=== PATIENT | male | born 1955 | race Caucasian/White ===

== ENCOUNTER 2016-12-15 14:56 | Emergency (ER) | payer OTHER ==
[2016-12-15 15:04] VITALS: BP 175/98
[2016-12-15] MEDS ORDERED: BUFFERED LIDOCAINE 10 ML SYRINGE ONE (16:08)
[2016-12-15] MEDS ORDERED: HYDROcod/ACETAM 5/325 MG TABLET PO STA (16:11)
[2016-12-15] MEDS ORDERED: CLINDAMYCIN 150 MG CAPSULE PO STA (16:11)
[2016-12-15] MEDS ORDERED: HYDROcod/ACETAM 5/325 MG TABLET ONE (16:13)
--- NOTE | 2016-12-15 16:13 | ED Physician Documentation ---
PD HPI HEENT - Stated complaint Stated Complaint: dental pain - Chief complaint Chief Complaint: Heent - History of Present Illness Timing - onset: Other (Despite seeing his dentist a few weeks ago with negative x-rays and "clean bill of health." He developed a toothache over the last few days which became severe overnight with mild left-sided facial swelling. Seems emanate from the last molar on the left maxilla.) Review of Systems Constitutional: denies: Fever, Chills Nose: denies: Rhinorrhea / runny nose, Congestion Throat: reports: Dental pain / toothache. denies: Sore throat PD PAST MEDICAL HISTORY - Past Medical History Past Medical History: Yes Cardiovascular: Hypertension - Past Surgical History Past Surgical History: No - Present Medications Home Medications: Ambulatory Orders Medication Instructions Recorded Confirmed Clindamycin [Cleocin] 300 mg PO Q6H 10 Days 12/15/16 HYDROcod/ACETAM 5/325 [[place] 5/325] 1 - 2 ea PO Q6H PRN #15 tablet 12/15/16 Metoprolol Succinate/Hctz 1 tab PO DAILY 12/15/16 12/15/16 [Metoprolol ER-Hctz 25-12.5 mg] - Allergies Allergies/Adverse Reactions: Allergies Allergy/AdvReac Type Severity Reaction Status Date / Time lisinopril AdvReac Unknown Verified 12/15/16 15:06 - Social History Does the pt smoke?: No Smoking Status: Never smoker Does the pt drink ETOH?: No Does the pt have substance abuse?: No PD ED PE NORMAL - Vitals Vital signs reviewed: Yes - General General: Alert and oriented X 3, No acute distress - HEENT HEENT: PERRL, EOMI, Other (Very mild left-sided facial swelling, he has a palpable early abscess lateral to the last molar on the left maxilla without trismus or sublingual edema.) - Neck Neck: Supple, no meningeal sign, No bony TTP - Neuro Neuro: Alert and oriented X 3, Normal speech - Psych Psych: Normal mood, Normal affect Results - Vitals Vitals: Vital Signs - 24 hr 12/15/16 15:02 Temperature 36.4 C L Heart Rate 82 Respiratory 16 Rate Blood Pressure 175/98 H O2 Saturation 98 Procedures - Abscess I&D (location) Dental abscess, L mandible Preparation: Lidocaine 1% Incision: Incised with scalpel, Purulent drainage, Loculations broken Other: Pt tolerated well, Dressing applied, Antibiotic prescribed Departure - Departure Disposition: 01 Home, Self Care Clinical Impression: Dental abscess Condition: Good Record reviewed to determine appropriate education?: Yes Instructions: ED Abscess Dental Prescriptions: Clindamycin [Cleocin] 300 mg PO Q6H 10 Days HYDROcod/ACETAM 5/325 [[place] 5/325] 1 - 2 ea PO Q6H PRN #15 tablet PRN Reason: Pain Comments: Follow-up with your dentist as soon as possible. Return if worse. Your blood pressure was elevated today on check into the emergency department. This does not mean that you have hypertension, it is a common phenomenon to come to the emergency department and have elevated blood pressure. I recommend that she see her primary care physician within the week to have it rechecked when you are feeling better. Do not drink or drive while taking narcotic pain medication. Note that many narcotic pain relievers also contain Tylenol/acetaminophen. Please ensure that your total dose of acetaminophen from all sources does not exceed 3 g (3000 mg) per day. You may get constipated while on this medication. Take a stool softener such as Colace twice a day while you are on it. Also add an [id number] laxative such as senna or MiraLAX on any day that you do not have a bowel movement. If you received a narcotic pain medication or sedative while in the emergency department, do not drive for the next 24 hours.
[2016-12-15] MEDS ORDERED: CLINDAMYCIN 150 MG CAPSULE PO ONE (16:14)
[2016-12-15] MEDS ORDERED: HYDROcod/ACET 5/325 Prepack 6 PO STA (16:23)
[2016-12-15] MEDS ORDERED: HYDROcod/ACET 5/325 Prepack 6 PO ONE (16:29)
== END 2016-12-15 16:36 | disposition home or self-care (01) ==
LOC: ED 14:56
DX: K04.7 Periapical abscess without sinus (principal); I10 Essential (primary) hypertension
CPT/HCPCS: 41800; 99283; A9270

== ENCOUNTER 2017-04-24 12:39 | Outpatient (CLI) | payer OTHER ==
[2017-04-24 18:04] LABS: BILIRUBIN,URINE NEGATIVE (NEGATIVE)
[2017-04-24 18:06] LABS: UA CHARGE (STRIP ONLY) YES; UR CULTURE IF IND NOT INDICATED
[2017-04-24 18:25] LABS: CALCIUM 9.2 mg/dL (8.5-10.3); POTASSIUM 3.7 mmol/L (3.5-5.0)
== END 2017-04-24 12:40 | disposition home or self-care (01) ==
LOC: LAB.F 12:39
PROVIDERS: ATTEND Internal Medicine
DX: R31.0 Gross hematuria (principal)
CPT/HCPCS: 36415; 80048; 81001; 81003; 87086

== ENCOUNTER 2017-07-04 07:38 | Outpatient (CLI) | payer OTHER ==
[2017-07-04 12:19] LABS: CHOL/HDL RATIO 5.9 (<5.0); CHOLESTEROL 259 mg/dL; HDL CHOLESTEROL 44 mg/dL; LDL CHOLESTEROL,CALCULATED 159 mg/dL; LDL/HDL RATIO 3.6 (<3.6); VLDL CHOLESTEROL 56 mg/dL
[2017-07-05 12:57] LABS: HEPATITIS C ANTIBODY NON-REACTIVE (NON-REACTIVE)
== END 2017-07-04 07:39 | disposition home or self-care (01) ==
LOC: LAB.F 07:38
PROVIDERS: ATTEND Internal Medicine
DX: Z11.59 Encounter for screening for other viral diseases (principal); Z13.6 Encounter for screening for cardiovascular disorders
CPT/HCPCS: 36415; 80061; 83721; 86803

== ENCOUNTER 2018-10-29 09:35 | Outpatient (CLI) | payer OTHER ==
[2018-10-29 17:38] LABS: CHOL/HDL RATIO 5.2 (<5.0); CHOLESTEROL 241 mg/dL; GLUCOSE,FASTING 105 mg/dL (70-100); HDL CHOLESTEROL 46 mg/dL; LDL CHOLESTEROL,CALCULATED 138 mg/dL; VLDL CHOLESTEROL 57 mg/dL
== END 2018-10-29 09:36 | disposition home or self-care (01) ==
LOC: LAB.F 09:35
PROVIDERS: ATTEND Internal Medicine
DX: E78.5 Hyperlipidemia, unspecified (principal); R73.01 Impaired fasting glucose
CPT/HCPCS: 36415; 80061; 82947; 83721

== ENCOUNTER 2018-11-17 09:10 | Outpatient (CLI) | payer OTHER ==
[2018-11-17 17:40] LABS: BASOPHILS % (AUTO) 0.5 %; EOSINOPHILS # (AUTO) 0.2 10^3/uL (0.0-0.7); HGB - HEMOGLOBIN 14.7 g/dL (14.0-18.0); LYMPHOCYTES # (AUTO) 2.2 10^3/uL (1.5-3.5); LYMPHOCYTES % (AUTO) 37.3 %; MEAN CORPUSCULAR HGB CONC 34.3 g/dL (32.0-36.0); MEAN CORPUSCULAR VOLUME 99.1 fL (80.0-94.0); MEAN PLATELET VOLUME 7.8 fL (7.4-11.4); MONOCYTES # (AUTO) 0.4 10^3/uL (0.0-1.0); MONOCYTES % (AUTO) 7.1 %; NEUTROPHILS # (AUTO) 3.1 10^3/uL (1.5-6.6); NEUTROPHILS % (AUTO) 52.1 %; PLT - PLATELET COUNT 260 10^3/uL (130-450); RED BLOOD COUNT 4.33 10^6/uL (4.70-6.10); RED CELL DISTRIBUTION WIDTH 12.8 % (12.0-15.0); WHITE BLOOD COUNT 5.9 x10^3/uL (4.8-10.8)
[2018-11-17 18:00] LABS: ALBUMIN 4.1 g/dL (3.2-5.5); BILIRUBIN,DIRECT 0.1 mg/dL (0.1-0.5); BILIRUBIN,TOTAL 0.9 mg/dL (0.2-1.0); CRP HIGH SENSITIVITY 2.7 mg/L; TOTAL PROTEIN 7.2 g/dL (6.7-8.2)
[2018-11-19 14:06] LABS: ANA SCREEN NEGATIVE (NEGATIVE)
== END 2018-11-17 09:11 | disposition home or self-care (01) ==
LOC: LAB.F 09:10
PROVIDERS: ATTEND Internal Medicine
DX: M79.18 Myalgia, other site (principal)
CPT/HCPCS: 36415; 80076; 82306; 82550; 84439; 84443; 85025; 85651; 86038; 86141

== ENCOUNTER 2018-12-08 15:13 | Outpatient (CLI) | payer OTHER | END 2018-12-08 15:14 | disposition home or self-care (01) | LOC: SC 15:13 | PROVIDERS: ATTEND Nurse Practitioner Family | DX: G47.33 Obstructive sleep apnea (adult) (pediatric) (principal); E66.9 Obesity, unspecified; Z68.37 Body mass index [BMI] 37.0-37.9, adult | CPT/HCPCS: 99204; 99212 ==

== ENCOUNTER 2019-02-23 15:18 | Outpatient (CLI) | payer OTHER ==
[2019-02-23 16:11] VITALS: BP 120/70
--- NOTE | 2019-02-23 16:11 | SLEEP CARE CONSULTATION ---
Information from patient questionnaire entered by Nancy Plata. I have reviewed and concur with the information entered by Nancy Plata. This document represents the service I personally performed and the decisions made by me, Diana Valdovinos, RN, MSN, [employer]. History of Present Illness Previous diagnosis: Mild, Obstructive Sleep Apnea-Hypopnea Syndrome AHI: 11.9 Reason for CPAP/BiPAP follow up: first compliance after device update Equipment type: CPAP Equipment obtained from: [employer] Mask style: Nasal pillows Mask brand: Resmed Backup mask available: Yes Last cushion change: a week ago HPI additional information: The Susu Ease nasal cream resolved the nasal irritation. CPAP Compliance Data - Data Reviewed with Patient Average duration of nightly device use: 6.95 Compliance rate %: 100 Current pressure setting (cmH2O): 8-10 Humidity settin Heated hose settin Average residual AHI: 0.7 Subjective Patient concerns: reports: nasal congestion (mild recently), dry mouth, nose, throat (a couple times a week ), other (headache a few times in the past week). denies: aerophagia, mask discomfort, air blowing in eyes, mask leak noise, condensation in mask/hose, epistaxis Observed to snore while using device: No Current pressure setting perceived as: comfortable On therapy, patient: reports: sleeping better, awakening more refreshed, being more awake and alert during the day, more rested overall Initial [place] Sleepiness Scale score: 8 Current [place] Sleepiness Scale score: 2 Allergies and Home Medications Known drug allergies: Yes Home medication list reviewed: Yes Allergy and home medication list: Medication Name (generic/name brand) Strength & Dosage Metoprolol-Hydrochlorothiazide 50-25mg tab one daily Aspirin 81mg tab one daily Vitamin D3 1000IU tab one daily Jade 180mg tab one daily Fluticasone 50 mcg/inh Nasal [place] Two sprays each nostril daily Allergy List Lisinopril Venlafaxine Simvastatin Review of Systems Review of systems same as previous: Yes Physical Exam Blood Pressure: 120/70 Cuff size: long Heart Rate: 77 O2 Saturation: 97 Height: 5 ft 9.25 in Weight (kg): 238 lb 6.4 oz Body Mass Index: 34.9 BMI Classification: Class 1 Impression and Plan 1. Obstructive Sleep Apnea-Hypopnea Syndrome, mild, with good treatment compliance and good apnea control. On CPAP therapy, the patient has better sleep quality and is more rested overall. For oral dryness, he is advised to lower the heated hose a setting a night. The headache sounds as if from allergies and he is also having the nasal congestion. He has also just restarted his Flonase recently which he states can contribute to headache. I have also noted it to be from dryness of air. Thus I also advised him to restart use of saline nasal spray prior to CPAP and Flonase for additional moisture and for better medication adherance. . Patient's apnea severity and rationale for treatment to reduce apnea, improve sleep quality and reduce cardiovascular and cerebrovascular events was reviewed. I also reviewed the benefit of consistent device use of CPAP for hypertension. Patient is obese with BMI of 34.9. He was advised of health risks associated with obesity including apnea risk / severity. He is starting to lose weight and praised for effort. I explained how significant weight loss can reduce CPAP pressure requirements and symptoms to report to adjust pressure. * Continue CPAP pressure at [id number] * Adjust heated hose * Use saline nasal spray. * Notify me if snoring with mask or feeling that the pressure is too much or too little * Continue to lose weight * Return for follow up in 1 year , or sooner if concerns arise * I spent 100% of this 25 minute visit face to face with the patient with greater than 50% of this was spent time counseling the patient and coordination of care.
== END 2019-02-23 15:19 | disposition home or self-care (01) ==
LOC: SC 15:18
PROVIDERS: ATTEND Nurse Practitioner Family
DX: G47.33 Obstructive sleep apnea (adult) (pediatric) (principal); E66.9 Obesity, unspecified; Z68.34 Body mass index [BMI] 34.0-34.9, adult
CPT/HCPCS: 99212; 99214

== ENCOUNTER 2021-06-23 14:57 | Outpatient (CLI) | payer OTHER | END 2021-06-23 14:58 | disposition EMS.NT | LOC: EMS 14:57 | DX: I10 Essential (primary) hypertension (principal); R51.9 Headache, unspecified; J32.9 Chronic sinusitis, unspecified ==

== ENCOUNTER 2021-06-23 15:47 | Emergency (ER) | payer OTHER ==
[2021-06-23] MEDS ORDERED: SUMAtriptan 6 MG/0.5 ML VIAL SUBQ STA (16:28)
[2021-06-23] MEDS ORDERED: KETOROLAC 60 MG/2 ML VIAL IM STA (16:28)
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
[2021-06-23 17:30] VITALS: BP 166/100
== END 2021-06-23 17:15 | disposition home or self-care (01) ==
LOC: ED 15:47
DX: B34.9 Viral infection, unspecified (principal); I10 Essential (primary) hypertension
CPT/HCPCS: 96372; 99282; 99283

== ENCOUNTER 2022-07-25 14:57 | Outpatient (CLI) | payer MEDICARE ==
[2022-07-25 15:50] VITALS: BP 132/88
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
== END 2022-07-25 14:58 | disposition home or self-care (01) ==
LOC: SC 14:57
PROVIDERS: ATTEND Nurse Practitioner Family
DX: G47.33 Obstructive sleep apnea (adult) (pediatric) (principal); E66.9 Obesity, unspecified; Z68.34 Body mass index [BMI] 34.0-34.9, adult
CPT/HCPCS: 99203; G0463; 99212

== ENCOUNTER 2023-05-24 06:19 | Emergency (ER) | payer MEDICARE ==
[2023-05-24] MEDS ORDERED: METOCLOPRAMIDE 10 MG/2 ML VIAL IVP STA (06:47)
[2023-05-24] MEDS ORDERED: SODIUM CHLORIDE 0.9% 1,000 ML IV STA ×2 (06:47→08:46)
[2023-05-24] MEDS ORDERED: KETOROLAC 15 MG/ML VIAL IVP STA (06:47)
[2023-05-24] MEDS ORDERED: diphenhydrAMINE INJ 50 MG/ML VIAL IVP STA (06:47)
[2023-05-24 07:16] LABS: BASOPHILS # (AUTO) 0.1 10^3/uL (0.0-0.1); BASOPHILS % (AUTO) 0.5 %; EOSINOPHILS # (AUTO) 0.1 10^3/uL (0.0-0.7); EOSINOPHILS % (AUTO) 1.3 %; HCT - HEMATOCRIT 42.1 % (42.0-52.0); HGB - HEMOGLOBIN 14.6 g/dL (14.0-18.0); LYMPHOCYTES # (AUTO) 2.3 10^3/uL (1.5-3.5); LYMPHOCYTES % (AUTO) 25.2 %; MEAN CORPUSCULAR HEMOGLOBIN 33.7 pg (27.0-31.0); MEAN CORPUSCULAR HGB CONC 34.7 g/dL (32.0-36.0); MEAN CORPUSCULAR VOLUME 97.2 fL (80.0-94.0); MONOCYTES # (AUTO) 0.7 10^3/uL (0.0-1.0); MONOCYTES % (AUTO) 7.7 %; PLT - PLATELET COUNT 242 10^3/uL (130-450); RED BLOOD COUNT 4.33 10^6/uL (4.70-6.10); RED CELL DISTRIBUTION WIDTH 12.3 % (12.0-15.0); WHITE BLOOD COUNT 9.2 x10^3/uL (4.8-10.8)
--- NOTE | 2023-05-24 07:33 | XRAY Report ---
PROCEDURE: Chest 1 View X-Ray INDICATIONS: palpiations TECHNIQUE: One view of the chest was acquired. COMPARISON: None. FINDINGS: Surgical changes and devices: None. Lungs and pleura: No pleural effusions or pneumothorax. Lungs are clear. Mediastinum: Mediastinal contours appear normal. Heart size is normal. Bones and chest wall: No suspicious bony lesions. Overlying soft tissues appear unremarkable. IMPRESSION: No acute cardiopulmonary process. Reviewed by: Alex Mosquera MD on 05/24/2023 7:32 AM [facility] Approved by: Alex Mosquera MD on 05/24/2023 7:32 AM [facility] Station ID: [id number]
[2023-05-24 07:40] LABS: PT - PROTHROMBIN TIME 11.4 secs (9.9-12.6)
[2023-05-24 07:53] LABS: ALBUMIN 4.9 g/dL (3.2-5.5); ALBUMIN/GLOBULIN RATIO 1.8 (1.0-2.2); BILIRUBIN,TOTAL 1.1 mg/dL (0.2-1.0); CALCIUM 9.9 mg/dL (8.5-10.3); CREATININE 1.1 mg/dL (0.6-1.3); POTASSIUM 3.5 mmol/L (3.5-4.5); TOTAL PROTEIN 7.7 g/dL (6.4-8.9)
--- NOTE | 2023-05-24 08:03 | ED Physician Documentation ---
PD HPI HEADACHE - Stated complaint Stated Complaint: CHOI/HIGH BP/CHEST PX - Chief complaint Chief Complaint: General - History obtained from History obtained from: Patient, Family () - History of Present Illness Timing - onset: How many days ago (5) Timing - onset during: Rest Timing - duration: Days (5) Timing - details: Gradual onset, Still present Location: Front Quality: Throbbing, Aching Associated symptoms: Nausea. No: Fever, Stiff neck, Vomiting, Weakness, Numbness, Syncope, Seizure, Eye pain, Vision changes Improved by: Rest Worsened by: Noise, Moving Contributing factors: Hypertension. No: Anticoagulated, Possible carbon monoxide Similar symptoms before: Diagnosis (migraine and hypertension) Recently seen: Not recently seen - Additional information Additional information: Abebe Garsia is a 68-year-old male who is treated for hypertension hyperlipidemia and obstructive sleep apnea who presents today to the emergency department with a headache that he has had for the past week. He has had some similar happen to him previously with elevated blood pressure and he was treated with a migraine cocktail and resolved his headache. He reports that he has some pressure in his chest or pain in the chest and he has come to the emergency department this morning for treatment and evaluation. His indicates that she believes the pain in his chest is secondary to some activity they had on their anniversary several days ago. The patient denies shortness of breath fever or cough currently. He has been immunized against COVID and had COVID in December of this year. Denies any lateralizing findings. Review of Systems Constitutional: denies: Fever Eyes: denies: Decreased vision, Photophobia Ears: denies: Loss of hearing, Ear pain Nose: reports: Congestion. denies: Rhinorrhea / runny nose Throat: denies: Sore throat Cardiac: reports: Chest pain / pressure. denies: Palpitations, Pedal edema, Calf pain Respiratory: denies: Dyspnea, Cough, Wheezing GI: reports: Nausea. denies: Abdominal Pain, Vomiting, Constipation, Diarrhea : denies: Dysuria, Frequency PD PAST MEDICAL HISTORY - Past Medical History Past Medical History: Yes Cardiovascular: Hypertension - Past Surgical History Past Surgical History: No - Present Medications Home Medications: Ambulatory Orders Medication Instructions Recorded Confirmed Metoprolol Mcelroy/Hydrochlorothiaz 2 tab PO DAILY 12/15/16 05/24/23 [Metoprolol ER-Hctz 25-12.5 mg] Aspirin [Aspirin EC] 81 mg PO DAILY PM 06/23/21 05/24/23 Losartan Potassium 1 tab PO DAILY 05/24/23 05/24/23 Rosuvastatin Calcium [Crestor] 1 tab PO DAILY PM 05/24/23 05/24/23 - Allergies Allergies/Adverse Reactions: Allergies Allergy/AdvReac Type Severity Reaction Status Date / Time lisinopril AdvReac Unknown Verified 05/24/23 06:46 - Social History Does the pt smoke?: No Smoking Status: Never smoker Does the pt drink ETOH?: No Does the pt have substance abuse?: No - POLST Patient has POLST: No PD ED PE NORMAL - Vitals Vital signs reviewed: Yes (Tachycardic and hypertensive) - General General: Alert and oriented X 3, No acute distress, Well developed/nourished - HEENT HEENT: Atraumatic, PERRL, EOMI, Ears normal, Pharynx benign, Other (Dry mucous membranes) - Neck Neck: Supple, no meningeal sign, No bony TTP - Cardiac Cardiac: No murmur, Other (tachy ) - Respiratory Respiratory: No respiratory distress, Clear bilaterally - Abdomen Abdomen: Soft, Non tender, Non distended - Back Back: No CVA TTP, No spinal TTP - Derm Derm: Normal color, Warm and dry, No rash - Extremities Extremities: No deformity, No edema - Neuro Neuro: Alert and oriented X 3, 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, No motor deficit, No sensory deficit, Normal speech Eye Opening: Spontaneous Motor: Obeys Commands Verbal: Oriented GCS Score: 15 - Psych Psych: Normal mood, Normal affect Results - Vitals Vitals: Vital Signs - 24 hr 05/24/23 05/24/23 05/24/23 06:41 07:54 09:53 Temperature 37 C Heart Rate 105 H 88 86 Respiratory 18 18 20 Rate Blood Pressure 187/104 H 178/99 H 169/95 H O2 Saturation 98 96 99 05/24/23 11:21 Temperature Heart Rate 81 Respiratory 18 Rate Blood Pressure 160/91 H O2 Saturation 98 Oxygen O2 Source Room air - EKG (time done) 0746 EKG releavant findings:: EKG personally interpreted by author of this note. Relevant findings are: Rate: Rate (enter#) (83) Rhythm: LAE Ischemia: Normal ST segments Compare to prior EKG: Unchanged from prior EKG (SPT 11-29-2013 no changes) Computer interpretation: Agree with computer - Labs Labs: Laboratory Tests 05/24/23 05/24/23 05/24/23 07:00 07:00 07:00 WBC 9.2 RBC 4.33 L Hgb 14.6 Hct 42.1 MCV 97.2 H MCH 33.7 H MCHC 34.7 RDW 12.3 Plt Count 242 MPV 9.0 Neut # (Auto) 6.0 Lymph # (Auto) 2.3 [place] # (Auto) 0.7 Eos # (Auto) 0.1 Baso # (Auto) 0.1 Absolute Nucleated RBC 0.00 Nucleated RBC % 0.0 PT INR Sodium 136 Potassium 3.5 Chloride 100 L Carbon Dioxide 25 Anion Gap 11.0 BUN 13 Creatinine 1.1 Estimated GFR (MDRD) 67 L Glucose 130 H Calcium 9.9 Total Bilirubin 1.1 H AST 27 ALT 33 Alkaline Phosphatase 45 Troponin I High Sens 8.2 Total Protein 7.7 Albumin 4.9 Globulin 2.8 Albumin/Globulin Ratio 1.8 05/24/23 07:15 WBC RBC Hgb Hct MCV MCH MCHC RDW Plt Count MPV Neut # (Auto) Lymph # (Auto) [place] # (Auto) Eos # (Auto) Baso # (Auto) Absolute Nucleated RBC Nucleated RBC % PT 11.4 INR 1.0 Sodium Potassium Chloride Carbon Dioxide Anion Gap BUN Creatinine Estimated GFR (MDRD) Glucose Calcium Total Bilirubin AST ALT Alkaline Phosphatase Troponin I High Sens Total Protein Albumin Globulin Albumin/Globulin Ratio - Rads (name of study) chest Relevant Findings:: Prelim report reviewed (Impression: No acute cardiopulmonary process), EMP independent interpretation of test, See rad report CTA head Relevant Findings:: Prelim report reviewed (Impression: 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 No extravasation identified.), EMP independent interpretation of test, See rad report CT head Relevant Findings:: Prelim report reviewed (Impression: 1. No acute intracranial pathology. Question 0.5 cm basilar tip aneurysm. Recommend cerebral CT angiogram for further evaluation.) Procedures - IVC sono (time) 0818 Bedside IVC sono: IVC measures (cm) (0.88), Dehydration (est 2 liter deficit) PD Medical Decision Making - ED course Complexity details: considered differential, d/w patient, d/w family Reviewed Lab Results: We reviewed a complete blood count showing a normal white blood cell count normal hemoglobin hematocrit and platelets coagulation normal INR chemistry normal electrolytes normal kidney and liver function high-sensitivity troponin negative at 8.2. These laboratory values are benign in appearance and do not contribute to a specific diagnosis. They do help with the differential ruling out acute coronary syndrome, renal failure, electrolyte abnormality, overwhelming infection or anemia as a reason for headache. ED course: 68-year-old male with a history of headache for 1 week presents today with elevated blood pressure and chest pain with tachycardia. His headache started after intercourse 6 days ago. He denies orgasm associated or pre-orgasm associated headache but headache after sex. He has had a similar headache previously not associated with sex and gets headaches sometimes once or twice a week. He has sleep apnea and he has been having some trouble regulating the moisture in the air tubing. Today I evaluated the patient with POCUS and interrogated the inferior vena cava and found a volume deficit of about 2 L. I felt this likely represented the reason this patient had a headache that appeared positional or is worse with head movement and persisted for days. Here in the emergency department the patient has responded well to a migraine cocktail that includes saline. He is given additional fluids and his workup is essentially benign. I have shared these results with the patient and his . Following what appeared to be a good explanation for this patient's symptoms the report came back from the patient's CT of the head and there was concern about a aneurysm in the basilar system and a CTA of the head was done demonstrating an 8 mm aneurysm without extravasation. Neurosurgery at [facility] is consulted in the case for direction. I did specifically ask the patient about weather his headache started prior to orgasm with orgasm or after sex and his was after. Dr. Mantilla the neurosurgeon at [facility] recommends direct transfer of the patient and request patient be n.p.o. I spoke with Dr. Herr emergency department physician at [facility] for hand off and we will airlift the patient and he will be n.p.o. The helicopter is weather grounded and the patient will go ground npo with IV NS [id number]. Departure - Departure Disposition: 02 Transfer Acute Care Hosp Clinical Impression: Dehydration determined by examination, Cerebral aneurysm Headache Qualifiers: Headache type: associated with sexual activity Qualified Code(s): G44.82 - Headache associated with sexual activity Condition: Stable Follow-Up: MIMI MALDONADO MD [Primary Care Provider] -
--- NOTE | 2023-05-24 08:20 | CT Report ---
PROCEDURE: HEAD WO INDICATIONS: FRONTAL CHOI X1 WK, NEW PATTERN TECHNIQUE: Noncontrast 4.5 mm thick angled axial sections acquired from the foramen magnum to the vertex. For r adiation dose reduction, the following was used: automated exposure control, adjustment of mA and/or kV according to patient size. COMPARISON: None. FINDINGS: Image quality: Excellent. CSF spaces: Basal cisterns are patent. No extra-axial fluid collections. Ventricles are normal in size and shape. Brain: No midline shift. No intracranial masses or hemorrhage. Florentino-white matter interface is norm al. Question 0.5 cm basilar tip aneurysm. Skull and face: Calvarium and visualized facial bones are intact, without suspicious lesions. Sinuses: Visualized sinuses and mastoids are clear. IMPRESSION: 1. No acute intracranial pathology. 2. Question 0.5 cm basilar tip aneurysm. Recommend cerebral CT angiogram for further evaluation. Reviewed by: Alex Mosquera MD on 05/24/2023 8:19 AM [facility] Approved by: Alex Mosquera MD on 05/24/2023 8:19 AM PST Station ID: [id number]
--- NOTE | 2023-05-24 09:55 | CT Report ---
PROCEDURE: CT Angio Head W/WO INDICATIONS: Suspected aneurysm CONTRAST: 80mL Omni 300 TECHNIQUE: After the administration of intravenous contrast, 1 mm thick sections acquired through the [place] of [place]. Postcontrast 4.5 mm thick sections then re-acquired from the foramen magnum to the vertex. 3-dimensional zuyzcfj-jckdpexlf-prliustioy (MIP) and/or volume rendering reformats were acquired of [facility] central intracranial vasculature. For radiation dose reduction, the following was used: automate d exposure control, adjustment of mA and/or kV according to patient size. COMPARISON: CT head May 22, 1940 5:00 AM FINDINGS: Image quality: Diagnostic. Anterior circulation: Intracranial internal carotid arteries are normal in size and flow. The flow within the paired anterior cerebral arteries is normal and symmetric. The flow within the middle cer ebral arteries is normal and symmetric. The anterior communicating artery is seen. No aneurysms are seen. Posterior circulation: At the tip of the basilar artery there is a fusiform dilation involving the ta keoff of the bilateral grey goods marker. This is from dilation measures 8.4 x 7.2 x 6.5 cm. Visualized portions o f the vertebral arteries demonstrate normal caliber. Flow within the posterior cerebral arteries is normal and symmetric. CSF spaces: Ventricles are normal in size and shape. Basal cisterns are patent. No extra-axial flu id collections. Brain: No midline shift. No intracranial bleeds or masses. Florentino-white matter interface appears int act. Skull and face: Calvarium and facial bones appear intact, without suspicious lesions. Sinuses: Visualized sinuses and mastoids are clear. 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 No extr avasation identified. Reviewed by: Kenrick Sheth MD on 05/24/2023 8:54 AM [facility] Approved by: Kenrick Sheth MD on 05/24/2023 8:54 AM [facility] Station ID: [id number]
[2023-05-24] MEDS ORDERED: iohexoL-300 100 ML VIAL IVP ONE (10:38)
[2023-05-24 11:23] VITALS: O2SAT 98
[2023-05-24] MEDS ORDERED: KETOROLAC 30 MG/ML VIAL IVP STA (12:54)
[2023-05-24] MEDS ORDERED: METOPROLOL 5 MG/5 ML VIAL IVP STA (13:21)
[2023-05-24 13:36] VITALS: BP 193/105
== END 2023-05-24 13:47 | disposition short-term general hospital (02) ==
LOC: ED 06:19
DX: I67.1 Cerebral aneurysm, nonruptured (principal); I10 Essential (primary) hypertension; E86.0 Dehydration; G44.82 Headache associated with sexual activity; E78.5 Hyperlipidemia, unspecified; Z79.82 Long term (current) use of aspirin; Z79.899 Other long term (current) drug therapy
CPT/HCPCS: 36415; 80053; 84484; 85025; 85610; 93005; 96361; 96374; 96375; 96376; 99285

== ENCOUNTER 2023-05-24 13:43 | Outpatient (CLI) | payer MEDICARE | END 2023-05-24 13:44 | disposition short-term general hospital (02) | LOC: EMS 13:43 | PROVIDERS: ATTEND Emergency Medicine | DX: I72.5 Aneurysm of other precerebral arteries (principal); R51.9 Headache, unspecified | CPT/HCPCS: A0425; A0428 ==